=== PATIENT | male | born 1955 | race Caucasian/White ===

== ENCOUNTER 2022-07-02 13:30 | Emergency (ER) | payer MEDICARE ==
[2022-07-02 13:37] VITALS: RESP 18
--- NOTE | 2022-07-02 13:42 | ED ---
Fall HPI - General Chief Complaint: Fall Stated Complaint: fall Time Seen by Provider: 07/02/22 13:35 Source: patient, EMS, RN notes reviewed Mode of arrival: EMS Limitations: no limitations - History of Present Illness Initial Comments: 67-year-old male presents emergency department via EMS chief complaint of trip and fall. Patient states she is running milligrams Robi tripped over his feet. Patient states that he has right shoulder pain no head injury no loss conscious. Patient did receive 100 g of fentanyl prior arrival states his pain has improved some. Patient states has limited range of motion of right shoulder. Denies any other extremity injury does have small abrasion to his right elbow states he is up-to-date on his tetanus. - Related Data Previous Rx's Medication Instructions Recorded HYDROcodone/APAP 7.5-325MG [[place] 1 tab PO Q6HR PRN 3 Days #12 tab 07/02/22 7.5-325] Allergies Allergy/AdvReac Type Severity Reaction Status Date / Time No Known Allergies Allergy Verified 07/02/22 14:03 Review of Systems ROS Statement: Those systems with pertinent positive or pertinent negative responses have been documented in the HPI. ROS Other: All systems not noted in ROS Statement are negative. Past Medical History Past Medical History: No Reported History History of Any Multi-Drug Resistant Organisms: None Reported Past Surgical History: Hernia Repair, Tonsillectomy Past Psychological History: No Psychological Hx Reported Smoking Status: Never smoker Past Alcohol Use History: Occasional Past Drug Use History: Marijuana General Exam Limitations: no limitations General appearance: alert, in no apparent distress Head exam: Present: atraumatic, normocephalic, normal inspection Eye exam: Present: normal appearance, PERRL, EOMI. Absent: scleral icterus, conjunctival injection, periorbital swelling ENT exam: Present: normal exam, mucous membranes moist Neck exam: Present: normal inspection. Absent: tenderness, meningismus, lymphadenopathy Respiratory exam: Present: normal lung sounds bilaterally. Absent: respiratory distress, wheezes, rales, rhonchi, stridor Cardiovascular Exam: Present: regular rate, normal rhythm, normal heart sounds. Absent: systolic murmur, diastolic murmur, rubs, gallop, clicks Extremities exam: Present: other (Right shoulder obvious deformity, tenderness palpation, neurovascular intact limited range of motion small abrasion to right elbow otherwise unremarkable extremity exam) Neurological exam: Present: alert, oriented X3 Skin exam: Present: warm, dry, intact, normal color. Absent: rash Course Vital Signs 07/02/22 13:33 Pulse Rate 64 Respiratory 18 Rate Blood Pressure 149/88 O2 Sat by Pulse 95 Oximetry Medical Decision Making - Medical Decision Making X-ray shows impacted proximal humerus fracture. Patient did receive pain medication prior arrival. Patient was placed in a splint will be given pain medication will follow-up with orthopedics. Disposition Clinical Impression: Fall, Closed fracture of right proximal humerus Disposition: HOME SELF-CARE Condition: Stable Instructions (If sedation given, give patient instructions): Proximal Humerus Fracture (ED) Additional Instructions: Please return to the Emergency Department if symptoms worsen or any other concerns. Prescriptions: HYDROcodone/APAP 7.5-325MG [[place] 7.5-325] 1 tab PO Q6HR PRN 3 Days #12 tab PRN Reason: Nasal Congestion Is patient prescribed a controlled substance at d/c from ED?: Yes When asked, does pt state using other controlled substances?: No If prescribed controlled substance>3 days was MAPS reviewed?: Prescribed <3 Days If opioid is for acute pain is fill amount 7 days or less?: Yes If Rx opioid, was Start Talking consent form obtained?: Yes Referrals: Matt Curran MD [Primary Care Provider] - 1-2 days Дмитрий Ramírez DO [Doctor of Osteopathic Medicine] - 1-2 days Time of Disposition: 14:21
--- NOTE | 2022-07-02 14:24 | XR ---
EXAMINATION TYPE: XR shoulder complete RT DATE OF EXAM: 07/02/2022 CLINICAL HISTORY: Pain after fall injury. TECHNIQUE: Three views of the right shoulder are obtained. COMPARISON: None. FINDINGS: Osseous structures are demineralized. There is acute comminuted displaced fracture through the right humeral head with impaction of the distal fracture fragment into larger fracture fragments one containing the greater and lesser tuberosity. Osseous glenoid appears intact. Acromioclavicular joint shows moderate to severe narrowing and mild to moderate spurring along with s uperior capsular hypertrophy. Visualized ribs are intact. IMPRESSION: There is acute comminuted displaced at least three-part fracture of the right proximal h umerus.
[2022-07-02] MEDS ORDERED: HYDROmorphone 0.5 MG/0.5 ML SYRINGE IVP STA (14:35)
[2022-07-02 14:55] VITALS: BP 121/75; PULSE 66
== END 2022-07-02 14:55 | disposition home or self-care (01) ==
LOC: EC 13:30
DX: S42.201A Unspecified fracture of upper end of right humerus, initial encounter for closed fracture (principal); F12.90 Cannabis use, unspecified, uncomplicated; W01.0XXA Fall on same level from slipping, tripping and stumbling without subsequent striking against object, initial encounter; Y93.02 Activity, running
CPT/HCPCS: 99284; 96374; 73030; J1170; 99283

== ENCOUNTER → 2022-07-05 | Outpatient (CLI) | payer MEDICARE ==
--- NOTE | 2022-07-05 08:37 | CT ---
EXAMINATION TYPE: CT upper extremity RT wo con CT DLP: 283 mGycm, Automated exposure control for dose reduction was used. DATE OF EXAM: 07/05/2022 7:21 AM COMPARISON: Right shoulder radiograph 07/04/2022, 07/02/2022 CLINICAL INDICATION:Male, 67 years old with history of CLOSED R HUMERUS FX; PHH, Fracture TECHNIQUE: Axial images were obtained of the right shoulder without the use of IV contrast. Addition al coronal and sagittal reformatted images and soft tissue and bone window were obtained for review. 3-D reconstruction was created on a separate workstation. FINDINGS: Diffuse bony mineralization. Acute comminuted displaced fractures the right humeral head wi th impaction of the distal fracture fragment into larger fracture fragments with one containing the g reater and lesser tuberosities. Small joint effusion. Osseous glenoid appears intact. The fracture fr agments about the glenoid fossa. AC joint is intact with hypertrophic changes including moderate narr owing and moderate spurring along with superior capsular hypertrophy. Soft tissue edema identified. V isualized ribs are intact. IMPRESSION: Redemonstration of acute comminuted displaced fracture of the right proximal humerus with impaction.
== END | disposition home or self-care (01) ==
LOC: RADCTMAIN 06:47
PROVIDERS: ATTEND Orthopaedic Surgery
DX: S42.301A Unspecified fracture of shaft of humerus, right arm, initial encounter for closed fracture (principal)

== ENCOUNTER → 2022-07-08 | Outpatient (CLI) | payer MEDICARE ==
[2022-07-08 17:41] LABS: Basophils # (A) 0.01 X 10*3/uL (0.00-0.10); Basophils % (A) 0.1 %; Eosinophils # (A) 0.15 X 10*3/uL (0.04-0.35); Eosinophils % (A) 2.2 %; HCT 34.8 % (39.6-50.0); HGB 11.6 g/dL (13.0-17.0); Immature Grans, Automated 0.4 %; Lymphocytes # (A) 1.54 X 10*3/uL (0.90-5.00); MCH 31.2 pg (27.0-32.0); MCHC 33.3 g/dL (32.0-37.0); MCV 93.5 fL (80.0-97.0); Mean Platelet Volume 10.9 fL (9.5-12.2); Monocytes # (A) 0.63 X 10*3/uL (0.20-1.00); Monocytes % (A) 9.4 %; NRBC Per 100 WBC 0 /100 WBCS (0.0-0.0); Neutrophils # (A) 4.34 X 10*3/uL (1.80-7.70); Neutrophils % (A) 64.9 %; Platelet Count 209 X 10*3/uL (140-440); RBC 3.72 X 10*6/uL (4.40-5.60); RDW 12.6 % (11.5-14.5)
[2022-07-08 17:52] LABS: African American GFR (CKD) 112.2 (60.0-200.0); Anion Gap 9.2 mmol/L (10.00-18.00); BUN/Creat Ratio 23.9 Ratio (12.00-20.00); Blood Urea Nitrogen 17.4 mg/dL (9.0-27.0); Calcium 8.9 mg/dL (8.7-10.3); Carbon Dioxide 26.5 mmol/L (20.0-27.5); Non-African American GFR(CKD) 96.8 (60.0-200.0); Potassium 4.3 mmol/L (3.5-5.5)
[2022-07-08 17:58] LABS: INR 0.96 (0.90-1.11); Prothrombin Time 10.6 sec (9.9-11.9)
== END | disposition home or self-care (01) ==
LOC: LABWHC1 12:52
PROVIDERS: ATTEND Orthopaedic Surgery
DX: Z01.812 Encounter for preprocedural laboratory examination (principal); Z22.322 Carrier or suspected carrier of Methicillin resistant Staphylococcus aureus; S42.241A 4-part fracture of surgical neck of right humerus, initial encounter for closed fracture; Y99.9 Unspecified external cause status
CPT/HCPCS: 36415; 80048; 85025; 85610; 87070; 93005

== ENCOUNTER 2022-07-16 07:57 | Observation (INO) | payer MEDICARE ==
--- NOTE | 2022-07-15 09:11 | P.HPOR ---
History of Present Illness H&P Date: 07/15/22 Chief Complaint: Right shoulder pain The patient's a 67-year-old retired male who presents with right shoulder pain after an injury 07/02/2022. He had a fall landing on his right side. Initially he was seen in the emergency room and has been in a sling since. He was severe right shoulder pain. He denies previous problems. Review of Systems As per HPI Past Medical History Past Medical History: No Reported History History of Any Multi-Drug Resistant Organisms: None Reported Past Surgical History: Hernia Repair, Tonsillectomy Past Psychological History: No Psychological Hx Reported Smoking Status: Never smoker Past Alcohol Use History: Occasional Past Drug Use History: Marijuana Medications and Allergies Home Medications Medication Instructions Recorded Confirmed Type HYDROcodone/APAP 7.5-325MG [[place] 1 tab PO Q6HR PRN 3 Days #12 tab 07/02/22 Rx 7.5-325] Allergies Allergy/AdvReac Type Severity Reaction Status Date / Time No Known Allergies Allergy Verified 07/02/22 14:03 Physical Examination - Shoulder right Appearance: swelling Effusion grade: grade 2 Tenderness with palpation: anterior Pain: other (With any attempted range of motion) ROM: abduction: 0 degrees ROM: forward flexion: 0 degrees ROM: internal rotation: 0 ROM: external rotation: 0 degrees Crepitus with motion: Yes (Limited strength secondary to pain) Results The patient is a well-developed well-nourished male proximal a 5 foot 8, 230 pounds of endomorphic habitus. HEENT exam is nonfocal, neck is supple. On examination the right shoulder he has significant limitation of motion secondary to pain. His mild anterior ecchymosis. He has moderate anterior swelling. He is nontender about the right elbow and wrist. His distal neurovascular exam appears intact in the right upper extremity. - Diagnostic results Shoulder CT: image reviewed (Right shoulder CT shows evidence of a displaced four-part proximal humerus fracture.) Assessment and Plan Assessment: Right 4 part displaced proximal humerus fracture Plan: I talked to the patient at length regarding his condition along with treatment options. With the severity of his injury and the displacement of the fracture fragments, I recommended proceeding with surgical intervention, specifically reverse total shoulder arthroplasty. Risks and benefits were discussed at length in layman's terms. Time with Patient: Less than 30
[2022-07-15 09:58] VITALS: BMI 34.9
[~2022-07-16 07:57] MED LIST: ACETAMINOPHEN TAB 500 MG TAB PO PRN; DEXAMETHASONE SOD PHOSPHATE 4 MG/ML 1 ML VIAL IV ONE; MELOXICAM 7.5 MG TAB PO PRN; ONDANSETRON 4 MG/2 ML VIAL IVP ONE; TRANEXAMIC ACID IN NACL,ISO-OS 1,000 MG in SALINE 1 100ML.BAG IVPB PRN
[2022-07-16] MEDS: LACTATED RINGERS 1,000 ML IV SCH ×2 (08:49→09:48)
[2022-07-16] MEDS ORDERED: MIDAZOLAM 2 MG/2 ML VIAL IVP ONE (09:01)
[2022-07-16] MEDS ORDERED: fentaNYL (PF) 50 MCG/ML 2 ML AMP IVP ONE (09:01)
[2022-07-16] MEDS ORDERED: ROCURONIUM 10 MG/ML (5 ML VIAL) IV ONE (09:47)
[2022-07-16] MEDS ORDERED: NEOSTIGMINE 1 MG/ML 10 ML VIAL ONE (09:47)
[2022-07-16] MEDS ORDERED: ROPIVACAINE 5 MG/ML 30 ML VIAL ONE (09:47)
[2022-07-16] MEDS ORDERED: LIDOCAINE 2% INJ 20 MG/ML (2 ML VIAL) ONE (09:47)
[2022-07-16] MEDS ORDERED: HYDROmorphone (PF) 1 MG/ML ONE (09:47)
[2022-07-16] MEDS ORDERED: PROPOFOL 10 MG/ML 20 ML VIAL IV ONE (09:47)
[2022-07-16] MEDS ORDERED: SUCCINYLCHOLINE CHLORIDE 200 MG/10 ML VIAL IV ONE (09:47)
[2022-07-16] MEDS ORDERED: PHENYLEPHRINE-0.9% NACL SYG 1,000 MCG/10 ML SYRINGE ONE (09:47)
[2022-07-16] MEDS ORDERED: TRANEXAMIC ACID IN NACL,ISO-OS 1,000 MG/100 ML BAG ONE (09:47)
[2022-07-16] MEDS ORDERED: GLYCOPYRROLATE 0.2 MG/ML 2 ML VIAL ONE (09:47)
--- NOTE | 2022-07-16 10:35 | P.ANPRN ---
Procedure Note - Anesthesia - Nerve Block Performed Right Interscalene Time Out Performed: Yes (09:00) Date of Procedure: 07/16/22 Procedure Start Time: Procedure Stop Time: Location of Patient: PreOp Indication: Acute Post-Operative Pain, Requested by Surgeon (Dr Jesus) Sedation Type: Sedate with meaningful contact maintained Preparation: Sterile Prep Position: Supine Catheter: None Needle Types: Pajunk Needle Gauge: 21, Other (see comment) (22g) Ultrasound used to visualize needle placement: Yes Ultrasound used to observe medication spread: Yes Injectate: 0.5% Ropivacaine (see comment for volume) (20cc) Blood Aspirated: No Pain Paresthesia on Injection Noted: No Resistance on Injection: Normal
[2022-07-16] MEDS ORDERED: LACTATED RINGERS 1,000 ML IV ONE (11:45)
[2022-07-16] MEDS ORDERED: HYDROcodone/APAP 5-325MG 1 EACH TAB PO PRN ×2 (12:08→12:10)
[2022-07-16] MEDS ORDERED: ONDANSETRON 4 MG/2 ML VIAL IVP PRN (12:08)
[2022-07-16] MEDS ORDERED: HYDROmorphone 1 MG/ML 1 ML SYRINGE IVP PRN (12:08)
--- NOTE | 2022-07-16 12:34 | P.OP ---
Date of Procedure: 07/16/22 Preoperative Diagnosis: Displaced right 4 part proximal humerus fracture Postoperative Diagnosis: Same Procedure(s) Performed: Reverse right total shoulder arthroplasty Implants: Depuy Delta Xtend size 12 humeral stem with a size 2 epiphysis, 42+6 articular surface, 42 mm standard glenosphere with +10 baseplate. Anesthesia: yordan PHAM Surgeon: Howard Jesus Office Messenger Helper #1: Henry Tolliver Estimated Blood Loss (ml): 300 Pathology: other (Humeral head) Condition: stable Disposition: PACU Indications for Procedure: The patient's a 67-year-old male who presents after falling injuring his right shoulder. Upon evaluation, he was noted to have a significantly displaced right 4 part proximal humerus fracture. A discussion of the risks and benefits of operative intervention was made with patient. Operative options were also discussed. After thorough discussion, he opted to proceed with reverse total shoulder arthroplasty. Specific risks to include infection, neurovascular injury, development of blood clots, possible instability, possible fracture, possible component loosening/failure need for subsequent procedures was discussed. Informed consent was obtained. Operative Findings: As below Description of Procedure: The patient was brought to the operating room, and after induction of general anesthesia was placed in a beachchair position. The bony prominences were appropriately padded. The right upper extremity was prepped and draped in normal fashion. The bony outlines the coracoid process, distal clavicle, and acromion were outlined with a skin marker. A 12 centimeter deltopectoral incision was made lateral to the coracoid process. Skin was incised sharply. Subcutaneous tissues were divided bluntly. Electrocautery was used for hemos tasis. The cephalic vein was identified and gently retracted laterally with the deltoid. The deltopectoral was bluntly developed. Subdeltoid adhesions were then released. The self-retaining retractor was placed. The conjoined tendon was retracted medially and the deltoid laterally. The biceps was identified. Its sheath was opened. A biceps tenotomy was performed along the remaining tendon did retract distally. The fracture fragments were identified. The greater and lesser tuberosity were tagged with #2 Ethibond suture. The head was extracted. Attention was then paid towards preparing the glenoid. An anterior and posterior retractors placed. The labrum was released from the 12-6 o'clock position. Remaining biceps was removed as well. A guidepin was placed in the inferior aspect of the glenoid with the guide slightly tilting inferior. The reamer was used down to a bleeding bony surface. The central peg hole was drilled. The +10 baseplate was inserted with good purchase. Inferior, superior, and posterior locking screws the appropriate length were placed. Good purchase was obtained. The 42 mm glenosphere was inserted over a guidewire. This was fully seated. Care was taken to avoid any soft tissue interposition. Attention was then paid towards preparing the proximal humerus. The canal was reamed by hand up to a size 10. The reduction clamp was placed on the proximal humeral shaft in 20 of retroversion. A size 10 trial was placed at the appropriate height. Trial reduction was obtained with a 42 mm + weeks articular surface. The shoulder was taken through range of motion. The shoulder was felt to be stable in flexion and extension with internal and external rotation. I felt there was adequate mandaen of soft tissue tension judging off the conjoined tendon. The shoulder was gently dislocated. The trial components were then removed. The final size 10 cemented stem along with a size 2 epiphysis was inserted to the appropriate height. After the cement had sufficiently hardened the clamp was removed. There was good rotational stability. Trial reduction was then again obtained with the 42+6 articular surface. The shoulder was taken through range of motion and was felt to be stable. The trial was removed and the final implant was impacted. The shoulder again was gently reduced and taken through range of motion. Again it was felt to be stable in all planes. Pulsatile lavage was utilized. The greater and lesser tuberosities were reattached to each other with #2 Ethibond suture. These were then attached to the humeral shaft with a #2 Ethibond suture. The deltopectoral interval was closed with interrupted 2-0 Vicryl sutures. The skin was reapproximated with 3-0 subcuticular Prolene suture. Steri-Strips were applied. A sterile dressing was applied. A sling was placed. The patient was awoken from general anesthesia and transferred to recovery room in good condition. Blood loss was estimated at 300 mL. No complications were incurred. Sponge and needle counts were correct at the end the case. Robert RAMOS assisted during the major components of the case to include exposure, glenoid and humeral preparation, implantation, and closure.
[2022-07-16] MEDS: HYDROmorphone 0.5 MG/0.5 ML SYRINGE IVP PRN ×4 (12:35→20:52)
[2022-07-16] MEDS ORDERED: oxyCODONE-APAP 5-325MG 1 EACH TAB PO PRN (12:55)
[2022-07-16] MEDS ORDERED: KETOROLAC 15 MG/ML 1 ML VIAL IVP ONE (13:03)
--- NOTE | 2022-07-16 15:09 | XR ---
EXAMINATION TYPE: XR shoulder limited RT DATE OF EXAM: 07/16/2022 COMPARISON: NONE HISTORY: 67-year-old male status post right total shoulder arthroplasty, assess surgical alignment TECHNIQUE: Single portable AP view FINDINGS: Reverse right total shoulder arthroplasty is demonstrated. Scattered soft tissue air related to recen t operation. Both glenosphere and humeral stem components of the prosthesis appear well seated. There appears to be a persistent retained 2.9 cm fracture fragment of the greater tuberosity along the lat eral articular margin of the humeral prosthesis. Correlate as to this was intended. IMPRESSION: Persistent retained 2.9 cm fracture fragment relating to the greater tuberosity located along the lat eral articular margin of the humeral prosthesis. Correlate as to if this was intended. Otherwise, the glenosphere and humeral stem components appear well seated with appropriate alignment.
--- NOTE | 2022-07-16 17:04 | P.CONS ---
History of Present Illness - Reason for Consult Consult date: 07/16/22 - Chief Complaint Admitted for right shoulder arthroplasty - History of Present Illness Patient is a 67-year-old male with no significant past medical history is admitted for right shoulder arthroplasty. Patient had a fall on 07/02/2022 after which she was found to have right humerus fracture. Patient was seen postop. He is currently drowsy due to the anesthesia. He denies any com plaints. Patient states that he does not take any medications at home. He states that he has no medical problems. Review of Systems 10 ROS reviewed and are negative except as noted in HPI Past Medical History Past Medical History: No Reported History History of Any Multi-Drug Resistant Organisms: None Reported Past Surgical History: Hernia Repair, Tonsillectomy Additional Past Surgical History / Comment(s): reverse right total shoulder Past Anesthesia/Blood Transfusion Reactions: No Reported Reaction Past Psychological History: No Psychological Hx Reported Smoking Status: Never smoker Past Alcohol Use History: Occasional Past Drug Use History: Marijuana - Past Family History Mother Family Medical History: No Reported History Medications and Allergies Home Medications Medication Instructions Recorded Confirmed Type HYDROcodone/APAP 7.5-325MG [[place] 1 tab PO Q6HR PRN 07/15/22 07/16/22 History 7.5-325] Allergies Allergy/AdvReac Type Severity Reaction Status Date / Time No Known Allergies Allergy Verified 07/16/22 08:13 Physical Exam Osteopathic Statement: *. No significant issues noted on an osteopathic structural exam other than those noted in the History and Physical/Consult. Vitals: Vital Signs Temp Pulse Resp BP Pulse Ox 07/16/22 15:35 98.1 F 76 16 111/71 93 L 07/16/22 14:30 68 18 143/73 98 07/16/22 14:00 69 18 144/73 98 07/16/22 13:45 69 18 122/68 100 07/16/22 13:30 67 18 129/78 100 07/16/22 13:15 64 18 129/79 100 07/16/22 13:00 64 18 134/75 100 07/16/22 12:45 62 18 123/74 100 07/16/22 12:30 97.1 F L 56 L 18 112/68 94 L 07/16/22 09:15 70 16 127/68 95 07/16/22 08:20 97.9 F 71 16 148/70 96 Intake and Output 07/16/22 07/16/22 07/16/22 06:59 14:59 22:59 Intake Total 2100 Output Total 300 Balance 1800 Intake: IV 2100 Output: Estimated Blood Loss 300 Other: Weight 110.5 kg General: [Alert and oriented, well nourished, no acute distress]. Eye: [PERRL, EOMI, normal conjunctiva]. HENT: [Normocephalic, clear tympanic membranes, normal hearing, moist oral mucosa, no scleral icterus, no sinus tenderness]. Neck: [Supple, non-tender, no carotid bruits, no JVD, no lymphadenopathy]. Lungs: [Clear to auscultation and percussion, non-labored respiration]. Heart: [Normal rate, regular rhythm, no murmur, gallop or edema]. Abdomen: [Soft, non-tender, non-distended, normal bowel sounds, no masses]. Musculoskeletal: [Right upper extremity in sling, no tenderness or swelling]. Skin: [Skin is warm, dry and pink, no rashes or lesions]. Neurologic: [Awake, alert, and oriented X3, CN II-XII intact]. Psychiatric: [Drowsy and somnolent]. Assessment and Plan Assessment: Postop hypoxia Encourage incentive spirometer use Obesity Will encourage weight loss Status post right shoulder arthroplasty Your orthopedic surgery management Patient on aspirin 325 mg by mouth daily for DVT prophylaxis Thank you for the consult. We'll continue to follow along with you
[2022-07-17] MEDS: HYDROmorphone 0.5 MG/0.5 ML SYRINGE IVP PRN ×2 (01:24→06:15)
[2022-07-17] MEDS: HYDROcodone/APAP 10-325MG 1 EACH TAB PO PRN ×4 (04:35→23:09)
[2022-07-17] MEDS: LACTATED RINGERS 1,000 ML IV SCH (08:06)
[2022-07-17] MEDS: ASPIRIN 325 MG TAB PO SCH (08:20)
--- NOTE | 2022-07-17 08:48 | P.PN ---
Subjective Progress Note Date: 07/17/22 Hospital course: Patient is a a very pleasant 67-year-old male with a past medical history of hernia status post repair and occasional cannabinoid use. He is currently admitted under orthopedic surgery team status post a reverse right total shoulder arthroplasty completed by Dr. Jesus on 07/16/22. we have been consulted for medical management throughout patient's hospitalization. Physical exam: Vital signs reviewed and stable. General: Nontoxic, no distress and appears stated age. Derm: Skin warm and dry, normal coloration for ethnicity. Head: Atraumatic, normocephalic and symmetric. Eyes: EOMs intact, no lid lag, and anicteric sclera Mouth: no lip lesions, mucus membranes moist Cardiovascular: regular rate and rhythm with normal S1S2, no murmur, positive posterior tibial pulses bilaterally, and cap refill < 2 seconds. Lungs: Respirations even, regular, and unlabored on room air. Lungs CTA bilaterally, no rhonchi, no rales, no wheezing, and no accessory muscle usage. Abdominal: soft, nontender to palpation, no guarding, no appreciable organomegaly Ext: Movement and sensation intact. Sling and postoperative dressing right upper extremity. No gross muscle atrophy, no edema, no contractures Neuro: Speech clear, face symmetrical and CN II-XII grossly intact with no noted focal neuro deficits Psych: Alert and oriented to person, place, time, and situation. Appropriate and pleasant affect. Assessment and Plan of Care: Postoperative hypoxia -Resolved. -Had long discussion with patient regarding the importance of incentive spirometer use 10-15 times hourly while awake. Status post reverse right total shoulder arthroplasty -Management per primary admitting orthopedic surgery team including DVT prophylaxis, pain management, wound care, dressing changes, weight-bearing, and PT/OT. -currently DVT prophylaxis with aspirin Thank you for allowing us to participate in the care of this pleasant patient. Do not hesitate to contact us with questions. Someone can be reached from the [facility] hospitalist group all hours of the day at [phone] or via perfect serve. Objective - Vital Signs Vital signs: Vital Signs Temp 97.8 F 07/17/22 07:44 Pulse 73 07/17/22 07:44 Resp 16 07/17/22 07:44 BP 106/62 07/17/22 07:44 Pulse Ox 93 L 07/17/22 07:44 FiO2 Intake & Output 07/16/22 07/17/22 07/17/22 18:59 06:59 18:59 Intake Total 2100 Output Total 600 Balance 1500 Weight 110.5 kg Intake: IV 2100 Output: Urine 300 Estimated Blood Loss 300 Other: # Voids 5 - Labs CBC & Chem 7: 07/17/22 05:42
[2022-07-17 09:03] LABS: Basophils # (A) 0.01 X 10*3/uL (0.00-0.10); Basophils % (A) 0.1 %; Eosinophils # (A) 0.01 X 10*3/uL (0.04-0.35); Eosinophils % (A) 0.1 %; HCT 30.5 % (39.6-50.0); HGB 10.4 g/dL (13.0-17.0); Immature Grans, Automated 0.4 %; Lymphocytes # (A) 1.48 X 10*3/uL (0.90-5.00); Lymphocytes % (A) 14.8 %; MCH 31.1 pg (27.0-32.0); MCHC 34.1 g/dL (32.0-37.0); MCV 91.3 fL (80.0-97.0); Mean Platelet Volume 10.3 fL (9.5-12.2); Monocytes # (A) 0.97 X 10*3/uL (0.20-1.00); Monocytes % (A) 9.7 %; NRBC Per 100 WBC 0 /100 WBCS (0.0-0.0); Neutrophils % (A) 74.9 %; Platelet Count 248 X 10*3/uL (140-440); RBC 3.34 X 10*6/uL (4.40-5.60); RDW 12.8 % (11.5-14.5); WBC 10.01 X 10*3/uL (4.50-10.00)
[2022-07-17] MEDS ORDERED: hydrOXYzine pamoate 25 MG CAP PO PRN (10:22)
--- NOTE | 2022-07-17 11:28 | P.PN ---
Subjective Progress Note Date: 07/17/22 Principal diagnosis: Displaced right 4 part proximal humerus fracture Patient was seen at bedside this morning resting in the semirecumbent position with sling to right upper extremity. Patient says he has been up walking since surgery. Patient says he has urinated several times since surgery yesterday. Patient says he has not had bowel movement yet, however, patient says he has been passing gas. Patient says he is in a lot of pain in right shoulder currently and does not feel like he'll be okay to go home today. Patient denies chest pain, fever, shortness breath, nausea, vomiting, change in vision, loss/bladder control. Objective - Vital Signs Vital signs: Vital Signs Temp 97.8 F 07/17/22 07:44 Pulse 73 07/17/22 07:44 Resp 16 07/17/22 07:44 BP 106/62 07/17/22 07:44 Pulse Ox 93 L 07/17/22 07:44 FiO2 Intake & Output 07/16/22 07/17/22 07/17/22 18:59 06:59 18:59 Intake Total 2100 Output Total 600 Balance 1500 Weight 110.5 kg Intake: IV 2100 Output: Urine 300 Estimated Blood Loss 300 Other: Voiding Method Toilet # Voids 5 - Exam Right shoulder: Incision is clean, dry, and intact. The bulky dressing is in good condition. There is minimal soft tissue swelling and ecchymosis surrounding the medial and lateral aspects of the incision. Calf is soft, no tenderness with palpation. Plantar flexion, dorsiflexion, EHL, FHL are intact. Sensory exam to light touch throughout the extremity is intact, dorsal pedis pulses 2+. Patient does have good range of motion is flexion/extension digits of right upper extremity. Patient is able to flex and extend her elbow. Radial pulses in the right upper extremity are 2+, intact. Cap refill under 3 seconds in digits of right hand - Labs CBC & Chem 7: 07/17/22 05:42 Labs: Abnormal Lab Results - Last 24 Hours (Table) 07/17/22 Range/Units 05:42 WBC 10.01 H (4.50-10.00) X 10*3/uL RBC 3.34 L (4.40-5.60) X 10*6/uL Hgb 10.4 L (13.0-17.0) g/dL Hct 30.5 L (39.6-50.0) % Eosinophils # 0.01 L (0.04-0.35) X 10*3/uL Assessment and Plan Assessment: 1. Displaced right 4 part proximal humerus fracture - Postoperative day 1 status post reverse right total shoulder arthroplasty Plan: 1. Displaced right 4 part proximal humerus fracture - reverse right total shoulder arthroplasty from , 07/16/2022. Patient stable this this morning. Sling currently on right upper extremity. Patient will stay one more night for pain control. Discharge home tomorrow, , 07/18/2022 2. Appreciate medical management 3. Pain management - [place]; Vistaril; IV meds only as necessary 4. DVT prophylaxis - Aspirin 325 mg daily 5. GI prophylaxis - senna 6. PT/OT - nonweightbearing right upper extremity. Maintain right upper extremity in sling at all times. 7. Encourage incentive spirometer use 8. Discharge planning - plan for home tomorrow, , 07/18/2022 Time with Patient: Less than 30
[2022-07-18] MEDS: HYDROcodone/APAP 10-325MG 1 EACH TAB PO PRN ×2 (06:15→13:36)
[2022-07-18] MEDS: LACTATED RINGERS 1,000 ML IV SCH (06:21)
[2022-07-18 07:34] VITALS: BP 105/66; PULSE 80; RESP 17; TEMP 98
[2022-07-18] MEDS ORDERED: SENNOSIDES 8.6 MG TAB PO SCH (09:00)
[2022-07-18] MEDS: ASPIRIN 325 MG TAB PO SCH (09:23)
--- NOTE | 2022-07-18 11:35 | P.PN ---
Subjective Progress Note Date: 07/18/22 Principal diagnosis: Status post reverse right total shoulder arthroplasty Patient evaluated at bedside, he's resting in his hospital chair. Patient states he is doing a lot better since yesterday. His pain is better controlled. He has no acute complaints at this time. He denies any chest pain, shortness of breath, nausea vomiting, fever or chills. Objective - Vital Signs Vital signs: Vital Signs Temp 98.0 F 07/18/22 07:33 Pulse 80 07/18/22 07:33 Resp 17 07/18/22 07:33 BP 105/66 07/18/22 07:33 Pulse Ox 96 07/18/22 07:33 FiO2 Intake & Output 07/17/22 07/18/22 07/18/22 18:59 06:59 18:59 Intake Total 120 Balance 120 Intake: Oral 120 Other: Voiding Method Toilet Toilet # Voids 2 4 - Exam Right upper extremity: Postoperative bandage was removed, incision is clean, dry and intact. Ecchymosis present in the shoulder region and proximal humerus. Mild soft tissue swelling noted. Compartments of the upper arm and lower arm are soft and compressible. Sensory exam to light touch is intact throughout the extremity. Flexion and extension are intact at the elbow and hand and wrist. Range of motion of the shoulder was not assessed. Radial/ulnar pulses are 2+ - Labs CBC & Chem 7: 07/17/22 05:42 Assessment and Plan Assessment: Postoperative day #2 status post reverse right total shoulder arthroplasty Plan: Pain control, plan for discharge home on [place] 10 mg/325 mg GI and DVT prophylaxis, aspirin 325 mg daily for 2 weeks Activity level restrictions discussed along with sling instructions Wound care instructions discussed, included showering/bandage change/icing Medical recommendations Discharge planning: Patient stable for discharge home today Time with Patient: Less than 30
--- NOTE | 2022-07-18 11:45 | P.DS ---
Providers Date of admission: 07/17/22 07:35 Expected date of discharge: 07/18/22 Attending physician: Howard Jesus Consults: 07/16/22 12:08 Consult Physician Routine Consulting Provider: Elizabeth Das Consult Reason/Comments: medical management Do you want consulting provider notified?: Yes Primary care physician: Matt [facility] Hospital Course: Date of admission: 07/16/2022 Date of discharge: 07/18/2022 Admission diagnosis: Status post reverse right total shoulder arthroplasty Discharge diagnosis: Same Attending physician: Dr. Jesus Surgical procedures: Reverse right total shoulder arthroplasty Brief history: Patient is a 67-year-old male with a history of a previous fall that resulted in a 4 part right proximal humerus fracture. At this point patient has failed conservative treatment measures and has opted to proceed with a elective reverse right total shoulder arthroplasty. Hospital course: Details of patient's surgery can be found in operative report. Patient tolerated the procedure well and was subsequently transported to orthopedic floor. Patient's orthopeidc and medical care was provided daily. Patient had daily laboratory tests performed for evaluation of overall blood counts. Patient had daily physical therapy to include strengthening range of motion as well as education with walker ambulation. Patient was treated with aspirin for their postoperative DVT prophylaxis during their inpatient stay. Patient was noted to have a relatively uneventful postoperative course. Patient reported satisfactory pain control with oral pain medications by postoperative day 1. Patient showed satisfactory progress with physical therapy. Patient moved steadily through the program and had no difficulty meeting the goals by postoperative day 2. Given patient's otherwise satisfactory course and having met physical therapy goals, plan is to discharge patient home on postoperative day 2. Discharge condition/disposition: Patient will be discharged home in stable condition. Discharge medications: Instructions are given on resumption of patient's normal daily medications per primary care recommendation, in addition patient will be prescribed [place] 10 mg/325 mg, Senokot-S, aspirin 325 mg. Discharge instructions: 1. Wound care and infection precautions, keep incision dry and covered while showering], no lotions, creams, moisturizers. No soaking, tubs, pools, hottubs. Do not scrub over the incision. 2. Utilize arm sling 3. Ice and elevate when necessary. Do not exceed 20 minutes per hour with ice pack. 4. Utilize compression sleeve until seen at first follow up appointment. 7. Pain meds and anticoagulants per prescription. 8. Pain medication has potential to cause constipation. Increase oral fluid and fiber intake. Contact primary care provider if you have not had a bowel movement within 48 hours after discharge 9. No anti-inflammatory medication until discussed at first post operative visit, this including Motrin, Aleve, Mobic, Diclofenac 10. Follow up in office at 2 weeks postop with Robert Tolliver PA-C/Víctor Hernandez 11. Follow up with your primary care doctor 7-10 days after discharge. 12. Contact [facility] with any questions, . Procedures: Reverse right total shoulder arthroplasty Patient Condition at Discharge: Good Plan - Discharge Summary Discharge Rx Participant: No New Discharge Prescriptions: New Aspirin 325 mg PO DAILY #30 tab HYDROcodone/APAP 10-325MG [[place] 10-325] 1 tab PO Q4H PRN 7 Days #42 tab PRN Reason: Pain Sennosides/Docusate Sodium [Senna-S 8.6-50 mg Tablet] 1 each PO DAILY PRN #21 tablet PRN Reason: Constipation No Action HYDROcodone/APAP 7.5-325MG [[place] 7.5-325] 1 tab PO Q6HR PRN PRN Reason: Pain Discharge Medication List HYDROcodone/APAP 7.5-325MG [[place] 7.5-325] 1 tab PO Q6HR PRN 07/15/22 [History] Aspirin 325 mg PO DAILY #30 tab 07/18/22 [Rx] HYDROcodone/APAP 10-325MG [[place] 10-325] 1 tab PO Q4H PRN 7 Days #42 tab 07/18/22 [Rx] Sennosides/Docusate Sodium [Senna-S 8.6-50 mg Tablet] 1 each PO DAILY PRN #21 tablet 07/18/22 [Rx] Follow up Appointment(s)/Referral(s): Víctor Lyle PAC [PHYSICIAN SPECIAL DELIVERY MESSENGER] - 08/02/22 2:30 pm Matt Curran MD [Primary Care Provider] - 1 Week Activity/Diet/Wound Care/Special Instructions: Orthopedic discharge instructions: 1. Resume home medications after discharge 2. Pain medication as needed 3. Keep incision covered and dry while showering 4. Utilize arm sling, okay to take breaks from a 5. Ice the extremity for symptomatically 6. Plan for follow-up at [facility] in 2 weeks Discharge Disposition: HOME SELF-CARE
--- NOTE | 2022-07-18 12:44 | P.PN ---
Subjective Progress Note Date: 07/18/22 Hospital course: Patient is a a very pleasant 67-year-old male with a past medical history of hernia status post repair and occasional cannabinoid use. He is currently admitted under orthopedic surgery team status post a reverse right total shoulder arthroplasty completed by Dr. Jesus on 07/16/22. we have been consulted for medical management throughout patient's hospitalization. Physical exam: Patient seen and fully evaluated at the bedside this morning. Patient appeared to be doing well and is postoperative day 2. Patient ambulatory in room and denies having any complaints reports pain in right shoulder is much more controlled and reports that he is feeling great. Vital signs are unremarkable. Patient is medically stable for discharge once cleared by primary orthopedic surgery team. Vital signs reviewed and stable. General: Nontoxic, no distress and appears stated age. Derm: Skin warm and dry, normal coloration for ethnicity. Head: Atraumatic, normocephalic and symmetric. Eyes: EOMs intact, no lid lag, and anicteric sclera Mouth: no lip lesions, mucus membranes moist Cardiovascular: regular rate and rhythm with normal S1S2, no murmur, positive posterior tibial pulses bilaterally, and cap refill < 2 seconds. Lungs: Respirations even, regular, and unlabored on room air. Lungs CTA bilaterally, no rhonchi, no rales, no wheezing, and no accessory muscle usage. Abdominal: soft, nontender to palpation, no guarding, no appreciable organomegaly Ext: Movement and sensation intact. Sling and postoperative dressing right upper extremity. No gross muscle atrophy, no edema, no contractures Neuro: Speech clear, face symmetrical and CN II-XII grossly intact with no noted focal neuro deficits Psych: Alert and oriented to person, place, time, and situation. Appropriate and pleasant affect. Assessment and Plan of Care: Postoperative hypoxia -Resolved. -Had long discussion with patient regarding the importance of incentive spirometer use 10-15 times hourly while awake. Acute postsurgical blood loss anemia -Expected finding, hemoglobin stable at 10.4 Status post reverse right total shoulder arthroplasty -Management per primary admitting orthopedic surgery team including DVT prophylaxis, pain management, wound care, dressing changes, weight-bearing, and PT/OT. -currently DVT prophylaxis with aspirin Thank you for allowing us to participate in the care of this pleasant patient. Do not hesitate to contact us with questions. Someone can be reached from the [facility] hospitalist group all hours of the day at [phone] or via perfect serve. Objective - Vital Signs Vital signs: Vital Signs Temp 98.0 F 07/18/22 07:33 Pulse 80 07/18/22 07:33 Resp 17 07/18/22 07:33 BP 105/66 07/18/22 07:33 Pulse Ox 96 07/18/22 07:33 FiO2 Intake & Output 07/17/22 07/18/22 07/18/22 18:59 06:59 18:59 Intake Total 120 Balance 120 Intake: Oral 120 Other: Voiding Method Toilet Toilet # Voids 2 4 - Labs CBC & Chem 7: 07/17/22 05:42 Labs: Abnormal Lab Results - Last 24 Hours (Table) 07/17/22 Range/Units 05:42 WBC 10.01 H (4.50-10.00) X 10*3/uL RBC 3.34 L (4.40-5.60) X 10*6/uL Hgb 10.4 L (13.0-17.0) g/dL Hct 30.5 L (39.6-50.0) % Eosinophils # 0.01 L (0.04-0.35) X 10*3/uL
== END 2022-07-18 13:46 | disposition home or self-care (01) ==
LOC: OR 07:57 → EDSTATUS 09:45 → 4SSUR 12:30 → OR 07-17 07:35 → 4SSUR 07-17 07:35
PROVIDERS: ADMIT Orthopaedic Surgery; ATTEND Orthopaedic Surgery
DX: S42.241A 4-part fracture of surgical neck of right humerus, initial encounter for closed fracture (principal); W19.XXXA Unspecified fall, initial encounter; M75.01 Adhesive capsulitis of right shoulder; R09.02 Hypoxemia; G89.18 Other acute postprocedural pain; D62 Acute posthemorrhagic anemia; M19.011 Primary osteoarthritis, right shoulder; E66.9 Obesity, unspecified
CPT/HCPCS: 64415; 76942; 88305; 85025; 88311; 73020; 23472; G0378 ×2; C1713; C1776; J2250; J0330; J1100; J2710; J0690 ×2; J2405; J3010; J1170 ×4; J2795; J1885; J2370; J2704; J2001

== ENCOUNTER → 2022-08-02 | Outpatient (CLI) | payer MEDICARE ==
--- NOTE | 2022-08-02 16:40 | US ---
EXAMINATION TYPE: US venous doppler duplex UE RT DATE OF EXAM: 08/02/2022 COMPARISON: NONE CLINICAL HISTORY: M79.621 PAIN RIGHT ARM. total shoulder surgery 2 weeks ago, swelling to left forear m, no h/o dvt SIDE PERFORMED: Right Called Víctor RAMOS with results @ 16:32 Right Arm: Negative for DVT IMPRESSION: No evidence for deep vein thrombosis of the right upper extremity.
== END | disposition home or self-care (01) ==
LOC: RADUSWWP 16:02
PROVIDERS: ATTEND Orthopaedic Surgery
DX: M79.621 Pain in right upper arm (principal)

== ENCOUNTER 2023-10-14 08:59 | Day surgery (SDC) | payer MEDICARE ==
[2023-10-14] MEDS ORDERED: LACTATED RINGERS 1,000 ML IV SCH (10:21)
[2023-10-14] MEDS ORDERED: LACTATED RINGERS 1,000 ML IV ONE (10:28)
[2023-10-14 11:03] VITALS: TEMP 97
[2023-10-14] MEDS ORDERED: PROPOFOL 10 MG/ML 20 ML VIAL IV ONE (11:10)
--- NOTE | 2023-10-14 11:24 | P.PCN ---
Date of Procedure: 10/14/23 Procedure(s) Performed: BRIEF HISTORY: Patient is a 68-year-old pleasant white male scheduled for an elective colonoscopy as a part of screening for colon cancer PROCEDURE PERFORMED: Colonoscopy. PREOPERATIVE DIAGNOSIS: Screening for colon cancer. . IV sedation per Anesthesia. PROCEDURE: After informed consent was obtained, the patient, was brought into the endoscopy unit. IV sedation was administered by Anesthesia under continuous monitoring. Digital rectal examination was normal. Initially the Olympus CF-160 flexible video colonoscope was then inserted in the rectum, gradually advanced into the cecum without any difficulty. Careful examination was performed as the scope was gradually being withdrawn. Ileocecal valve and the appendiceal orifice were visualized and appeared normal. Prep was excellent. Mucosa of the cecum, ascending colon, transverse colon, descending colon, sigmoid colon, and rectum appeared normal. Scattered sigmoid diverticulosis. Retroflexion was performed in the rectum and no lesions were seen. The patient tolerated the procedure well. IMPRESSION: Normal-appearing colon from rectum to cecum no evidence of colorectal neoplasia . Scattered sigmoid diverticulosis. RECOMMENDATIONS: Findings of this examination were discussed with the patient as well as his family. He was advised to have a repeat screening colonoscopy in 10 years..
[2023-10-14 11:51] VITALS: BP 123/69; PULSE 69; RESP 20
== END 2023-10-14 12:10 | disposition home or self-care (01) ==
LOC: ORWHC2ENDO 08:59
PROVIDERS: ATTEND Internal Medicine Gastroenterology
DX: Z12.11 Encounter for screening for malignant neoplasm of colon (principal); K57.30 Diverticulosis of large intestine without perforation or abscess without bleeding; E78.5 Hyperlipidemia, unspecified; G47.33 Obstructive sleep apnea (adult) (pediatric); E66.01 Morbid (severe) obesity due to excess calories; Z79.899 Other long term (current) drug therapy; F12.90 Cannabis use, unspecified, uncomplicated; Z98.890 Other specified postprocedural states; Z68.36 Body mass index [BMI] 36.0-36.9, adult
CPT/HCPCS: J2704; G0121